=== PATIENT | male | born 1975 | race Caucasian/White ===

== ENCOUNTER 2016-05-30 14:29 | Emergency (ER) | payer OTHER ==
--- NOTE | 2016-05-30 14:32 | ED Physician Documentation ---
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 Pt has a seizure hx and had a seizure at work. He was post-ictal after event, but was A& O at time of presentation to ER. Pt sustained a laceration to his R external ear during the seizure. Tetanus utd.) - ROS CONST: no problems EYES/ENT: none CVS/RESP: none GI/: none MS/SKIN/LYMPH: other (laceration R external ear.) NEURO/PSYCH: other (seizure earlier) - PAST HX Past History: other (seizures) Allergies/Adverse Reactions: Allergies Allergy/AdvReac Type Severity Reaction Status Date / Time sulfamethoxazole AdvReac Intermediate Rash/Fever Verified 05/30/16 14:35 [From Bactrim] trimethoprim [From Bactrim] AdvReac Intermediate Rash/Fever Verified 05/30/16 14 :35 - SOCIAL HX Smoking History: cigarettes - FAMILY HX Family History: No - VITAL SIGNS Vital Signs: Vital Signs Temp Pulse Resp BP Pulse Ox 128/84 08/30/15 11:38 - REVIEWED ASSESSMENTS Nursing Assessment Reviewed: Yes Vitals Reviewed: Yes Procedures Wound Location: other (R external ear) Wound's Depth, Shape: linear Wound Explored: clean Irrigated w/ Saline (ccs): 10 Betadine Prep?: Yes Anesthesia: 1% Lidocaine Wound Debrided: minimal Wound Repaired With: sutures Suture Size/Type: 4:0, nylon Number of Sutures: 3 Layer Closure?: No Progress - Progress Progress: Apply topical antibiotic such as Neosporin, Bacitracin, or Triple Antibiotic to sutured area twice daily for 5 days. Follow up with primary provider for suture removal in 5 to 7 days. General Adult Physical Exam - PHYSICAL EXAM GENERAL APPEARANCE: no distress EENT: eye inspection normal, ENT inspection normal, pharynx normal NECK: normal inspection, supple RESPIRATORY: no resp distress, chest non-tender, breath sounds normal CVS: reg rate & rhythm, heart sounds normal ABDOMEN: soft, no organomegaly, normal bowel sounds BACK: normal inspection, no CVA tenderness SKIN: other (laceration R external ear.) EXTREMITIES: non-tender, normal range of motion, no evidence of injury NEURO: oriented X3, CN's nml as tested, motor nml, sensation nml Discharge Clincal Impression: Seizure, L ear laceration Referrals: Berkley Villarreal, [facility] [facility] [facility] [Primary Care Provider] - Condition: Good Disposition: 01 HOME, SELF-CARE Decision to Admit: NO Decision Time: 15:50
[2016-05-30] MEDS: 0.9 % SODIUM CHLORIDE 1,000 ML IV ONE (14:40)
[2016-05-30 14:57] LABS: BASOPHILS % 0.5 (0.0-1.5); EOSINOPHILS % 1.4 % (0.0-6.8); LYMPHOCYTES # 1.5 # k/uL (0.6-4.0); MEAN CORPUSCULAR HEMOGLOBIN 30.6 pg (28.0-34.0); MONOCYTES # 0.2 # k/uL (0.0-0.9); MONOCYTES % 3.5 % (0.0-11.0); NEUTROPHILS # 4.8 # k/uL (1.4-7.7)
[2016-05-30] MEDS: Lidocaine 1% 5ml(IM or SUTURE)(PAIN CLINIC) IJ ONE (15:00)
[2016-05-30 15:14] LABS: eGFR (African) > 60; eGFR (Non-African) > 60
[2016-05-30 16:10] VITALS: BP 120/68
== END 2016-05-30 16:08 | disposition home or self-care (01) ==
LOC: ED 14:29
DX: R56.9 Unspecified convulsions (principal); S01.311A Laceration without foreign body of right ear, initial encounter; W19.XXXA Unspecified fall, initial encounter; Y93.9 Activity, unspecified; Y99.9 Unspecified external cause status
CPT/HCPCS: 36415; 80053; 85025; J7030; 12001; 96360; 99284